=== PATIENT | male | born 1960 | race Caucasian/White ===

== ENCOUNTER 2018-09-08 19:06 | Emergency (ER) | payer SELFPAY ==
--- NOTE | 2018-09-08 19:38 | EDM.PDOC ---
ED HPI GENERAL MEDICAL PROBLEM - General Chief Complaint: ENT Problem Stated Complaint: NOSE INJURY Time Seen by Provider: 09/08/18 19:10 Source of Information: Reports: Patient History Limitations: Reports: No Limitations - History of Present Illness INITIAL COMMENTS - FREE TEXT/NARRATIVE: 58 YO WM was cutting down a tree branch when it struck him on the nose causing a 7cm laceration to his nose. Pt thinks his glasses caused the lacerations. Pt denies any other injury. No loss of consciousness. no epistasis. Discussed closure options with the patient and he wants laceration closure done in ER and is deferring plastics consultation. Onset: Today Duration: Hour(s): (2) Location: Reports: Face Quality: Reports: Ache Severity: Mild Improves with: Reports: None Worsens with: Reports: None Associated Symptoms: Reports: No Other Symptoms Treatments [employer]: Reports: Dressing(s) Face/Facial Pain Score (Numeric/FACES): 4 - Related Data Allergies Allergy/AdvReac Type Severity Reaction Status Date / Time No Known Drug Allergies Allergy Cannot Verified 09/08/18 19:19 Remember Home Meds: Home Meds Albuterol Sulfate [Proventil Hfa] 1 - 2 puff INH ASDIRECTED PRN 09/08/18 [ History] Sulfamethoxazole/Trimethoprim [Septra DS] 1 each PO BID #10 tab 09/08/18 [Rx] Past Medical History - Past Health History Medical/Surgical History: Denies Medical/Surgical History - Past Surgical History Head Surgeries/Procedures: Reports: None ED ROS ENT - Review of Systems Review Of Systems: See Below Constitutional: Reports: No Symptoms HEENT: Reports: Nose Pain Respiratory: Reports: No Symptoms Cardiovascular: Reports: No Symptoms Endocrine: Reports: No Symptoms GI/Abdominal: Reports: No Symptoms : Reports: No Symptoms Musculoskeletal: Reports: No Symptoms Skin: Reports: Wound (multiple nose lacerations measuring 7cm in total) Neurological: Reports: No Symptoms Psychiatric: Reports: No Symptoms Hematologic/Lymphatic: Reports: No Symptoms ED EXAM, ENT - Physical Exam Exam: See Below Exam Limited By: No Limitations General Appearance: Alert, WD/WN, No Apparent Distress Ears: Normal External Exam, Normal Canal, Hearing Grossly Normal, Normal TMs Nose: Dried Blood. No: Nasal Tenderness, Nasal Ecchymosis, Septal Deformity, Septal Hematoma, Septal Perforation, Active Bleeding Mouth/Throat: Normal Inspection, Normal Gums, Normal Lips, Normal Oropharynx, Normal Teeth Head: Atraumatic, Normocephalic Neck: Normal Inspection, Supple, Non-Tender, Full Range of Motion Respiratory/Chest: No Respiratory Distress, Lungs Clear, Normal Breath Sounds, No Accessory Muscle Use, Chest Non-Tender Cardiovascular: Normal Peripheral Pulses, Regular Rate, Rhythm, No Edema, No Gallop, No JVD, No Murmur, No Rub GI/Abdominal: Normal Bowel Sounds, Soft, Non-Tender, No Organomegaly, No Distention, No Abnormal Bruit, No Mass Back: Normal Inspection, Full Range of Motion Extremities: Normal Inspection, Normal Range of Motion, Non-Tender, No Pedal Edema, Normal Capillary Refill Neurological: Alert, Oriented, CN II-XII Intact, Normal Cognition, Normal Gait, Normal Reflexes, No Motor/Sensory Deficits Psychiatric: Normal Affect, Normal Mood Skin: Wound/Incision (multiple nose lacerations measuring 7cm in total) Lymphatic: No Adenopathy ED ENT PROCEDURES - Laceration/Wound Repair Nose Lac/wound length in cm: 7 Appearance: Superficial Distal NVT: Neuro & Vascular Intact Anesthetic Type: Local Local Anesthesia - Lidocaine (Xylocaine): 1% Plain Local Anesthetic Volume: 5cc Skin Prep: Providone-Iodine (Betadine), Saline Exploration/Debridement/Repair: Wound Explored Suture Size: other (6.0) # of Sutures: 18 Suture Type: Nylon Sterile Dressing Applied: None Tetanus Status Addressed: Yes Complications: None Course - Vital Signs Last Recorded V/S: Last Vital Signs Temp 36.4 C 09/08/18 19:15 Pulse 66 09/08/18 19:15 Resp 20 09/08/18 19:15 BP 174/95 H 09/08/18 19:15 Pulse Ox 93 L 09/08/18 19:15 - Orders/Labs/Meds Orders: Active Orders 24 hr Category Date Time Status Vaccines to be Administered [RC] PER UNIT ROUTINE Care 09/08/18 20:01 Active Sulfamethoxazole/Trimethoprim [Septra DS] Med 09/08/18 21:11 Once 4 tab PO ONETIME ONE Meds: Medications Discontinued Medications Generic Name Dose Route Start Last Admin Trade Name Freq PRN Reason Stop Dose Admin Diphtheria/Tetanus/Acell Pertussis 0.5 ml 09/08/18 20:00 09/08/18 20:46 Adacel IM 09/08/18 20:01 0.5 ml .ONCE ONE Administration Lidocaine HCl Confirm 09/08/18 20:00 09/08/18 21:05 Xylocaine 1% Administered 09/08/18 20:01 Not Given Dose 20 ml .ROUTE .STK-MED ONE Lidocaine HCl 10 ml 09/08/18 20:45 09/08/18 21:07 Xylocaine 1% INJECT 09/08/18 20:46 10 ml ONETIME ONE Administration Neomycin/Polymyxin/Bacitracin 1 each 09/08/18 21:05 09/08/18 21:07 Triple Antibiotic Oint TOP 09/08/18 21:06 1 each ONETIME ONE Administration - Radiology Interpretation Free Text/Narrative:: nasal bone- nondisplaced nasal bone fracture Departure - Departure Time of Disposition: 21:12 Disposition: Home, Self-Care 01 Condition: Good Clinical Impression: Nasal bone fracture Qualifiers: Encounter type: initial encounter Fracture type: open Qualified Code(s): S02.2XXB - Fracture of nasal bones, initial encounter for open fracture Facial laceration Qualifiers: Encounter type: initial encounter Qualified Code(s): S01.81XA - Laceration without foreign body of other part of head, initial encounter - Discharge Information Prescriptions: Sulfamethoxazole/Trimethoprim [Septra DS] 1 each PO BID #10 tab Instructions: Facial Laceration, Nasal Fracture Referrals: Mary Palma PA-C [Primary Care Provider] - Forms: ED Department Discharge Additional Instructions: 1. discharge home 2. suture removal in 5-7 days 3. wound care instructions given 4. nasal bone fracture instructions given 5. follow up with PCP 6. return to ER for worsening symptoms - My Orders Last 24 Hours: My Active Orders 09/08/18 20:01 Vaccines to be Administered [RC] PER UNIT ROUTINE 09/08/18 21:11 Sulfamethoxazole/Trimethoprim [Septra DS] 4 tab PO ONETIME ONE - Assessment/Plan Last 24 Hours: My Active Orders 09/08/18 20:01 Vaccines to be Administered [RC] PER UNIT ROUTINE 09/08/18 21:11 Sulfamethoxazole/Trimethoprim [Septra DS] 4 tab PO ONETIME ONE Assessment:: 1. 7cm facial laceration to nose 2. nondisplaced nasal bone fracture Plan: 1. discharge home 2. suture removal in 5-7 days 3. wound care instructions given 4. nasal bone fracture instructions given 5. follow up with PCP 6. return to ER for worsening symptoms 7. septra DS 1 BID x 7 days
--- NOTE | 2018-09-08 19:55 | CR ---
[id number] RAD/RAD Nasal Bones Exam: RAD Nasal Bones Indication:FACIAL TRAUMA, HIT IN NOSE BY TREE BRANCH, LACERATION Comparison: No prior imaging for comparison. Discussion: Linear lucency at the tip of the nasal bone consistent with an acute nondisplaced fracture. Impression: As above. Jovon Dalton MD 09/08/18 1954 Thank you for allowing us to participate in the care of your patient.
[2018-09-08] MEDS ORDERED: Diphtheria,Pertussis(Acell),Tetanus Vaccine 0.5 ML SDV IM ONE (20:00)
[2018-09-08] MEDS ORDERED: Lidocaine 1% 20 ML MDV ONE (20:00)
[2018-09-08] MEDS ORDERED: Lidocaine 1% 50 ML MDV INJECT ONE (20:45)
[2018-09-08] MEDS ORDERED: Bacitracin/Neomycin/Polymyxin B Oint 0.9 GM U/D Packet TOP ONE (21:05)
[2018-09-08] MEDS ORDERED: Sulfamethoxazole/Trimethoprim 800-160 MG Tab PO ONE (21:11)
== END 2018-09-08 21:20 | disposition home or self-care (01) ==
LOC: KA.ED 19:06
DX: S02.2XXB Fracture of nasal bones, initial encounter for open fracture (principal); Z23 Encounter for immunization
CPT/HCPCS: 12014; 70160; 90471; 90715; 99283; A9270-GY